=== PATIENT | male | born 1985 | race Caucasian/White ===

== ENCOUNTER 2020-02-05 09:58 | Emergency (ER) | payer OTHER ==
[~2020-02-05] VITALS: Ht 177.8 cm; Wt 70.0 kg
[2020-02-05] MEDS ORDERED: LEXAPRO10 MG PO (10:28)
[2020-02-05 10:44] VITALS: BP 135/85
== END 2020-02-05 10:44 | disposition home or self-care (01) | DRG 881 ==
LOC: ED 09:58
DX: F32.9 Major depressive disorder, single episode, unspecified (principal); T43.226A Underdosing of selective serotonin reuptake inhibitors, initial encounter; Z91.128 Patient's intentional underdosing of medication regimen for other reason